=== PATIENT | male | born 1995 | race African-American/Black ===

== ENCOUNTER 2020-04-10 11:18 | Emergency (ER) | payer OTHER, SELFPAY ==
[2020-04-10 11:37] VITALS: BP 135/72; PULSE 73; RESP 18; TEMP 36.6; O2SAT 98
--- NOTE | 2020-04-10 12:13 | ED.GENADULT ---
HPI - General Adult General Chief complaint: Back Pain/Injury Stated complaint: lower back pain radiating down legs Time Seen by Provider: 04/10/20 11:33 Source: patient Mode of arrival: ambulatory Limitations: no limitations History of Present Illness HPI narrative: Patient presents with chief complaint of spasming to his right and left low back and thighs that began shortly after stopping a full body crunch workout 3 days ago. He denies any falls. Patient reports that over the past few days he has noticed more tightening and muscle spasming with ambulation and range of motion. He denies pain to the center of his back, loss of sensation to his lower extremities, loss of rectal tone, loss of bowel or bladder function or saddle paresthesias. Patient denies any other symptoms or concerns. Related Data Allergies Allergy/AdvReac Type Severity Reaction Status Date / Time No Known Allergies Allergy Unknown Uncoded 04/10/20 11:35 Review of Systems Review of Systems: Narrative: CONSTITUTIONAL: Denies fever, chills, or sweats. EYES: Denies visual changes, redness, or discharge. ENT: Denies rhinorrhea, congestion, sore throat, or otalgia. CARDIOVASCULAR: Denies chest pain, palpitations, or edema. RESPIRATORY: Denies cough or dyspnea. GASTROINTESTINAL: Denies abdominal pain, nausea, vomiting, or diarrhea. GENITOURINARY: Denies dysuria or hematuria. SKIN: Denies rash or itching. MUSCULOSKELETAL: Reports back pain and muscle spasming NEUROLOGIC: Denies headache, numbness, dizziness, or weakness. PSYCHIATRIC: Denies anxiety or depression. [facility], [facility] Social History Social History Smoking status: Never smoker Gender identity (if verbalized by the patient): Male Sexual Orientation (if Verbalized by the Patient): Straight or Heterosexual Exam Narrative: Exam Narrative: GENERAL: Well-appearing, well-nourished, and in no acute distress. HEAD: Normocephalic, atraumatic. EYES: PERRLA and EOMI. NECK: Supple. No adenopathy or masses. No carotid bruits or JVD CHEST: Clear to auscultation. No respiratory distress. No wheezes rales or rhonchi HEART: Regular rate and rhythm. No murmur heard. Normal peripheral pulses. BACK: No vertebral point tenderness. There is muscle spasming to bilateral lumbar paraspinal muscles. There is tightness and spasming to posterior bilateral thighs. There is no saddle paresthesia. Straight leg raise test is negative. EXTREMITIES: Normal range of motion. No edema. SKIN: Warm, dry, no rash. NEURO: No focal deficits. Alert and oriented x3. PSYCH: Normal mood and affect. Course Vital Signs Vital signs: Vital Signs Temperature 97.8 F 04/10/20 11:37 Pulse Rate 73 04/10/20 11:37 Respiratory Rate 18 04/10/20 11:37 Blood Pressure 135/72 04/10/20 11:37 Pulse Oximetry 98 04/10/20 11:37 Temperature 97.8 F 04/10/20 11:37 Pulse Rate 73 04/10/20 11:37 Respiratory Rate 18 04/10/20 11:37 Blood Pressure 135/72 04/10/20 11:37 Pulse Oximetry 98 04/10/20 11:37 Medical Decision Making MDM Narrative Medical decision making narrative: Patient has muscle strain and spasm. He does not have any vertebral point tenderness and straight leg raise test is negative. He does not have any neurological deficits. Patient has been instructed to take anti-inflammatory and muscle relaxants for his symptoms. Patient has been instructed to follow-up primary care if symptoms persist for imaging or further investigation. Patient declines Toradol injection during his ER visit. Differential Diagnosis Differential Diagnosis: Fracture, sprain, strain, lumbar radiculopathy, cauda equina Vital Signs Vital Signs: Vital Signs Temperature 97.8 F 04/10/20 11:37 Pulse Rate 73 04/10/20 11:37 Respiratory Rate 18 04/10/20 11:37 Blood Pressure 135/72 04/10/20 11:37 Pulse Oximetry 98 04/10/20 11:37 Temperature 97.8 F 04/10/20 11:37 Pulse R
[2020-04-10 12:33] VITALS: RESP 16
[2020-04-10] MEDS: KETOROLAC 30 MG/ML VIAL (*BKC) IM (12:33)
--- NOTE | 2020-04-10 13:02 | PC.NURSE ---
Pt off floor for CT scan and xrays
== END 2020-04-10 12:33 | disposition home or self-care (01) ==
PROVIDERS: Emergency Provider Emergency Medicine
DX: S39.012A Strain of muscle, fascia and tendon of lower back, initial encounter (principal); X50.0XXA Overexertion from strenuous movement or load, initial encounter
CPT/HCPCS: 96372; 99283; J1885

== ENCOUNTER 2020-06-12 12:01 | Emergency (ER) | payer OTHER, SELFPAY ==
--- NOTE | 2020-06-12 12:18 | ED.GENADULT ---
HPI - General Adult General Chief complaint: Urogenital-Male Stated complaint: STD EXPOSURE Time Seen by Provider: 06/12/20 12:18 Source: patient Mode of arrival: ambulatory Limitations: no limitations History of Present Illness HPI narrative: 25-year-old male patient presents to the [facility] with concerns for STDs. Patient states last week he had 2 sexual encounters with 2 different partners and did not use protection on either partner. Patient states he has now been thinking about it and states he has been very anxious and now is concerned that he might have an STD. Patient does not report any symptoms. Denies any lesions or sores on the penis. Denies any fevers, body aches or chills. Denies any abdominal pain or low back pain. Patient states he has never been tested for STDs before the past. Patient states he only has female partners and only participates in vaginal intercourse. Related Data Allergies Allergy/AdvReac Type Severity Reaction Status Date / Time No Known Allergies Allergy Unknown Uncoded 04/10/20 11:35 Review of Systems Review of Systems: Narrative: CONSTITUTIONAL: Denies fever, chills, or sweats. EYES: Denies visual changes, redness, or discharge. ENT: Denies rhinorrhea, congestion, sore throat, or otalgia. CARDIOVASCULAR: Denies chest pain, palpitations, or edema. RESPIRATORY: Denies cough or dyspnea. GASTROINTESTINAL: Denies abdominal pain, nausea, vomiting, or diarrhea. GENITOURINARY: Denies dysuria or hematuria. SKIN: Denies rash or itching. MUSCULOSKELETAL: Denies back pain, joint pain, or myalgia. NEUROLOGIC: Denies headache, numbness, or weakness. PSYCHIATRIC: Denies anxiety or depression. [facility] Past Medical History Medical History (Updated 06/12/20 @ 12:57 by ABBIE Collins) Anxiety Asthma PTSD (post-traumatic stress disorder) Social History Social History Smoking status: Never smoker Gender identity (if verbalized by the patient): Male Comments At the time of my signature I agree with nursing past medical history, surgical, social, and family history. There is no relevant family history pertinent to the presenting complaint. Exam Narrative: Exam Narrative: GENERAL: Well-appearing, well-nourished, and in no acute distress. HEAD: Normocephalic, atraumatic. EYES: PERRLA and EOMI. ENT: Nares clear, no rhinorrhea or epistaxis. Mucous membranes moist. NECK: Supple. No lymphadenopathy CHEST: Clear to auscultation. No respiratory distress. HEART: Regular rate and rhythm. No murmur heard. Normal peripheral pulses. ABDOMEN: Soft, nontender, nondistended, normal active bowel sounds. No CVA tenderness on percussion EXTREMITIES: Normal range of motion. No edema. SKIN: Warm, dry, no rash. NEURO: No focal deficits. Alert and oriented x3. Course Vital Signs Vital signs: Vital Signs Temperature 37.2 C 06/12/20 12:23 Pulse Rate 64 06/12/20 12:23 Respiratory Rate 16 06/12/20 12:23 Blood Pressure 135/82 06/12/20 12:23 Pulse Oximetry 99 06/12/20 12:23 Temperature 37.2 C 06/12/20 12:23 Pulse Rate 64 06/12/20 12:23 Respiratory Rate 16 06/12/20 12:23 Blood Pressure 135/82 06/12/20 12:23 Pulse Oximetry 99 06/12/20 12:23 Vital signs reviewed The patient has been informed that they may have pre-hypertension or Hypertension based on a BP reading in the department. I recommend that the patient call the primary care provider listed on their discharge instructions or a physician of their choice this week to arrange follow up for further evaluation of possible pre-hypertension or Hypertension Medical Decision Making Differential Diagnosis Differential Diagnosis: Differential diagnosis: Uncomplicated lower UTI, uncomplicated UTI, polynephritis, penile trauma,balanoposthitis, phimosis, paraphimosis, testicular torsion, epididymitis, prostatitis, varicocele, spermatocele, hydrocele, hernia. Gonorrhea, chla
[2020-06-12 12:23] VITALS: BP 135/82; PULSE 64; RESP 16; TEMP 37.2; O2SAT 99
[2020-06-12] MEDS: cefTRIAXone 250 MG VIAL 500 MG IM (13:03)
== END 2020-06-12 13:29 | disposition home or self-care (01) ==
PROVIDERS: Emergency Provider Nurse Practitioner Family; PCP Emergency Medicine
DX: Z20.2 Contact with and (suspected) exposure to infections with a predominantly sexual mode of transmission (principal); J45.909 Unspecified asthma, uncomplicated
CPT/HCPCS: 81003; 87491; 87591; 87661; 96372; 99213; G0463; J0696

== ENCOUNTER 2020-11-18 12:13 | Emergency (ER) | payer OTHER, SELFPAY ==
--- NOTE | ~2020-11-18 | XR_ITS ---
EXAMINATION: XR chest 2V DATE: 11/18/2020 12:37 INDICATION: Shortness of breath, COVID 19 positive TECHNIQUE: PA and lateral views of the chest are obtained. COMPARISON: 03/25/2019 FINDINGS: There are minimal airspace opacities lung bases. There is no pleural effusion or pneumothor ax. The cardiomediastinal silhouette is normal. The visualized bones and soft tissues are unremarkabl e. IMPRESSION: 1. Minimal opacities of the lung bases, likely COVID 19 pneumonia given clinical history. Reviewed, dictated and finalized at location A. IMPRESSION: 1. Minimal opacities of the lung bases, likely COVID 19 pneumonia given clinica l history.
[2020-11-18 12:20] VITALS: BP 137/82; PULSE 89; RESP 18; TEMP 36.7; O2SAT 98
[2020-11-18 14:25] VITALS: BP 143/68; PULSE 92; RESP 18; TEMP 36.6; O2SAT 98
--- NOTE | 2020-11-18 16:02 | ED.GENADULT ---
HPI - General Adult General Chief complaint: Asthma Stated complaint: asthma/covid + Time Seen by Provider: 11/18/20 14:27 Source: patient Mode of arrival: ambulatory Limitations: no limitations History of Present Illness HPI narrative: Patient presents for evaluation of asthma acting up . He states that he took a Covid test at home a week ago he is he was having some sinus problems. The test was positive. Since then he has experienced some wheezing, productive cough of yellow sputum, and some mild shortness of breath. He has been using his nebulizer approximately 1-2 times per day. He denies any fever, chills, chest pain, nausea, vomiting, diarrhea. He denies marijuana or tobacco use. He is not using any additional medications for symptoms. Related Data Home Medications Medication Instructions Recorded Confirmed fluticasone propionate INTRANASAL 11/18/20 montelukast mg 11/18/20 Allergies Allergy/AdvReac Type Severity Reaction Status Date / Time No Known Allergies Allergy Unknown Uncoded 11/18/20 12:23 Review of Systems Review of Systems: CONSTITUTIONAL: Denies fever, chills, or sweats. EYES: Denies visual changes, redness, or discharge. ENT: Denies rhinorrhea, congestion, sore throat, or otalgia. CARDIOVASCULAR: Denies chest pain, palpitations, or edema. RESPIRATORY: Reports shortness of breath, productive cough of yellow sputum and wheezing GASTROINTESTINAL: Denies abdominal pain, nausea, vomiting, or diarrhea. GENITOURINARY: Denies dysuria or hematuria. SKIN: Denies rash or itching. MUSCULOSKELETAL: Denies back pain, joint pain, or myalgia. NEUROLOGIC: Denies headache, numbness, dizziness, or weakness. PSYCHIATRIC: Denies anxiety or depression. [facility] Past Medical History Medical History (Updated 11/18/20 @ 16:07 by ABBIE Robledo, [place]) Anxiety Asthma PTSD (post-traumatic stress disorder) Surgical History Surgical History No pertinent past surgical history Family History Family History (Updated 11/18/20 @ 16:04 by ABBIE Robledo, [place]APIN) Mother No pertinent past medical history Social History Social History (Updated 11/18/20 @ 16:05 by ABBIE Robledo, CHAPIN) Smoking status: Never smoker Alcohol intake: never Substance use: never Living arrangements: with family Gender identity (if verbalized by the patient): Male Spiritual care concerns: No Exam Narrative: GENERAL: Well-appearing, well-nourished, and in no acute distress. HEAD: Normocephalic, atraumatic. EYES: PERRLA and EOMI. ENT: Nares clear, no rhinorrhea or epistaxis. Mucous membranes moist. Oropharynx without tonsillar hypertrophy exudate or other lesions. Bilateral TMs pearly adams nonbulging NECK: Supple. No adenopathy or masses. No carotid bruits or JVD CHEST: Clear to auscultation. No respiratory distress. No wheezes rales or rhonchi HEART: Regular rate and rhythm. No murmur heard. Normal peripheral pulses. ABDOMEN: Soft, nontender, nondistended, normal active bowel sounds. EXTREMITIES: Normal range of motion. No edema. SKIN: Warm, dry, no rash. NEURO: No focal deficits. Alert and oriented x3. PSYCH: Normal mood and affect. Course Course Emergency Course: This is a 25-year-old male with recent positive test for Covid. Presents today with respiratory complaints. On examination she appears nontoxic. Saturations are 99% on room air. Do not appreciate any adventitious lung sounds. He has no tachycardia or hypoxemia to suggest PE. He is clinically stable for discharge. Will discharge with a prescription for prednisone given underlying history of asthma. Should follow-up outpatient for further evaluation treatment return for worsening symptoms. Patient agreed with plan of care. Vital Signs Vital signs: Vital Signs Temperature 36.7 C 11/18/20 12:20 Pulse Rate 89 11/18/20 12:20 Respiratory Rate 18 11/18/20 12:20 Blood Pr
[2020-11-18 16:24] VITALS: BP 122/82; PULSE 90; RESP 20; O2SAT 97
== END 2020-11-18 16:35 | disposition home or self-care (01) ==
PROVIDERS: Emergency Provider Nurse Practitioner
DX: U07.1 COVID-19 (principal); J45.909 Unspecified asthma, uncomplicated
CPT/HCPCS: 71046; 99283

== ENCOUNTER 2020-11-21 18:02 | Emergency (ER) | payer OTHER, SELFPAY ==
--- NOTE | ~2020-11-21 | XR_ITS ---
XR chest 1V portable DATE: 11/21/2020 19:06 INDICATION: Cough, shortness of breath, fever. Covid-positive 10 days ago. TECHNIQUE: Portable upright AP views on 11/21/2020 at 1858 1959 hours COMPARISON: 11/19/2020 PA and lateral chest FINDINGS: Extensive patchy bilateral pulmonary infiltrates of the mid and lower lung zones. Normal he art size. No pleural effusion or pneumothorax. IMPRESSION: Extensive bilateral pulmonary infiltrates, likely due to Covid pneumonia Reviewed, dictated and finalized at location A. IMPRESSION: Extensive bilateral pulmonary infiltrates, likely due to Covid pranay espinosa
[2020-11-21 18:21] VITALS: BP 117/62; PULSE 107; RESP 16; TEMP 38.4; O2SAT 100
[2020-11-21 18:50] VITALS: O2SAT 99
--- NOTE | 2020-11-21 19:01 | PC.NURSE ---
Patient states he needs an IV and IV fluids. EDP Rafaeluri aware and states patient will not be getting an IV and IV fluids. Patient notified and was educated to continue oral fluid intake. Patient given multiple cups of water.
[2020-11-21] MEDS: predniSONE 20 MG TABLET 60 MG PO (19:11)
--- NOTE | 2020-11-21 19:14 | PC.NURSE ---
Patient reporting chest pain with inspiration and coughing. EDP Carlos notified, EKG ordered.
--- NOTE | 2020-11-21 19:21 | ECG_ITS ---
Measurements Intervals [place] Rate: 98 P: 25 OK: 125 QRS: 1 QRSD: 88 T: -15 QT: 307 QTc: 393 Interpretive Statements SINUS RHYTHM DELAYED PRECORDIAL R/S TRANSITION NONSPECIFIC T-WAVE ABNORMALITY- INF/LAT LEADS BORDERLINE ECG Electronically Signed On 11-22-2020 6:40:31 CDT by Branden Damian D.O.
[2020-11-21 19:40] LABS: EDCOVIDSCREEN Negative (Negative)
[2020-11-21] MEDS: ALBUTEROL SULFATE NEB 2.5 MG/0.5 ML INH 5 MG INHALATION (20:17)
[2020-11-21 20:19] VITALS: BP 130/81; PULSE 95; RESP 20; TEMP 38.8; O2SAT 96
[2020-11-21 20:20] VITALS: PULSE 92; RESP 22
[2020-11-21] MEDS: ACETAMINOPHEN 500 MG TABLET 1000 MG PO (20:46)
[2020-11-21 21:16] VITALS: TEMP 38
--- NOTE | 2020-11-21 21:23 | ED.SOB ---
HPI - SOB/Dyspnea General Chief Complaint: Shortness of Breath/Dyspnea Stated Complaint: diff breathing Time Seen by Provider: 11/21/20 18:46 Source: patient Mode of arrival: ambulatory Limitations: no limitations History of Present Illness HPI Narrative: 25-year-old with a history of asthma diagnosed with Covid 11 days ago here with complaints of shortness of breath, chest pain and fever. Patient states that he is on prednisone at this time. He denies any nausea or vomiting. He also is requesting a strong inhaler. MD elicited complaint: shortness of breath Pertinent past history: asthma Context: recent illness Severity: moderate Exacerbating factors: nothing Relieving factors: nothing Known history of: asthma Associated symptoms: chest pain Related Data Home oxygen amount: none Home Medications Medication Instructions Recorded Confirmed fluticasone propionate INTRANASAL 11/18/20 montelukast mg 11/18/20 Allergies Allergy/AdvReac Type Severity Reaction Status Date / Time No Known Allergies Allergy Verified 11/21/20 19:39 Review of Systems Review of Systems: All systems reviewed & are unremarkable except as noted in HPI and below Constitutional: Constitutional: Reports no additional constitutional complaints Eyes: Eyes: Reports no additional eye complaints ENT: Reports system reviewed and no additional complaints, except as documented Cardiovascular: Cardiovascular: Reports chest pain Respiratory: Respiratory: Reports as per HPI Musculoskeletal: Musculoskeletal: Reports no additional musculoskeletal complaints PMFSH Past Medical History Medical History (Updated 11/21/20 @ 21:28 by Angel Crawford MD) Anxiety Asthma PTSD (post-traumatic stress disorder) Surgical History Surgical History No pertinent past surgical history Family History Family History (Updated 11/18/20 @ 16:04 by ABBIE Robledo, ) Mother No pertinent past medical history Social History Social History (Updated 11/18/20 @ 16:05 by ASHLEY RobledoP, ) Smoking status: Never smoker Alcohol intake: never Substance use: never Gender identity (if verbalized by the patient): Male Spiritual care concerns: No Exam Narrative: GENERAL: Well-appearing, well-nourished, and in no acute distress. HEAD: Normocephalic, atraumatic. EYES: PERRLA and EOMI.. NECK: Supple. CHEST: Clear to auscultation. No respiratory distress. HEART: Regular rate and rhythm. No murmur heard. Normal peripheral pulses. ABDOMEN: Soft, nontender, nondistended, normal active bowel sounds. EXTREMITIES: Normal range of motion. No edema. SKIN: Warm, dry, no rash. NEURO: No focal deficits. Alert and oriented x3. PSYCH: Normal mood and affect. Course Course Emergency Course: Inform patient about his Covid screen. Did give him 1 nebulizer treatment he feels much better. Advised him to continue prednisone and inhalers. Informed him about his chest x-ray findings. Vital Signs Vital signs: Vital Signs Temperature 38.4 C H 11/21/20 18:21 Pulse Rate 107 H 11/21/20 18:21 Respiratory Rate 16 11/21/20 18:21 Blood Pressure 117/62 11/21/20 18:21 Pulse Oximetry 100 11/21/20 18:21 Temperature 38.8 C H 11/21/20 20:19 Pulse Rate 92 11/21/20 20:20 Respiratory Rate 22 H 11/21/20 20:20 Blood Pressure 130/81 11/21/20 20:19 Pulse Oximetry 96 11/21/20 20:19 MDM - SOB/Dyspnea Lab Data Labs: Lab Results 11/21/20 11/21/20 Range/Units 19:16 19:28 SARS-CoV-2 IgG/IgM Ag?Rapid Negative (Negative) POC SARS CoV-2 Ag Cancelled Imaging Data Radiologist's impression: ITS Impressions Chest X-Ray 11/21/20 19:13 IMPRESSION: Extensive bilateral pulmonary infiltrates, likely due to Covid pneumonia ECG Data EKG #1: ECG completion date: 11/21/20 ECG completion time: 19:27 EKG Interpretation: nor
[2020-11-21 21:52] VITALS: BP 129/85; PULSE 95; RESP 17; O2SAT 97
== END 2020-11-21 21:53 | disposition home or self-care (01) ==
PROVIDERS: Emergency Provider Family Medicine
DX: U07.1 COVID-19 (principal); J12.82 Pneumonia due to coronavirus disease 2019; J45.20 Mild intermittent asthma, uncomplicated; R94.31 Abnormal electrocardiogram [ECG] [EKG]
CPT/HCPCS: 36415; 71045; 87426; 93005; 94640; 99283; A9270; C9803; J7512